=== PATIENT | female | born 1930 | race Caucasian/White ===

== ENCOUNTER 2017-06-07 02:10 | Inpatient (IN) | payer MEDICARE ==
[~2017-06-07] VITALS: Ht 144.8 cm; Wt 43.1 kg
[2017-06-07] MEDS ORDERED: VANCOMYCIN IV 1,000 MG in IV DEXTROSE 5% 250 ML IV ONE (02:30)
[2017-06-07] MEDS ORDERED: CEFTRIAXONE 1 G in IV DEXTROSE 5% 50 ML IV ONE (02:30)
[2017-06-07] MEDS ORDERED: GENTAMICIN SULFATE INJ 80 MG in IV DEXTROSE 5% 100 ML IV ONE (02:30)
[2017-06-07] MEDS ORDERED: IV NORMAL SALINE 1000 ML BAG IV ONE (02:30)
[2017-06-07 02:38] LABS: ABG PCO2 20.7 mmHg (35.0-45.0); ABG PH 7.532 (7.350-7.450); ABG PO2 45.8 mmHg (75.0-100.0); ABG SITE LEFT BRACHIAL; ABG TOTAL HEMOGLOBIN 10.8 G/dL (12.0-16.0); MetHb 0.1 % (0.0-1.5); VENT MODE ROOM AIR
[2017-06-07 03:00] LABS: BASOPHILS % (AUTO) 0.3 % (0.0-2.0); HEMATOCRIT 30.5 % (31.2-41.9); HEMOGLOBIN 10.2 g/dL (10.9-14.3); LYMPHOCYTES # (AUTO) 0.5 K/uL (20.0-40.0); LYMPHOCYTES % (AUTO) 4.3 % (20.5-51.5); MEAN CORPUSCULAR HGB CONC 33 g/dL (32.3-35.6); MEAN CORPUSCULAR VOLUME 83.9 fL (75.5-95.3); MONOCYTES # (AUTO) 0.5 K/uL (2.0-10.0); MONOCYTES % (AUTO) 4.5 % (0.0-11.0); NEUTROPHILS # (AUTO) 9.4 K/uL (1.8-8.9); NEUTROPHILS % (AUTO) 90.9 % (38.5-71.5); PLATELET COUNT (AUTO) 83 K/uL (179-408); RED BLOOD CELL COUNT(AUTO) 3.64 MIL/uL (3.63-4.92); WHITE BLOOD COUNT (AUTO) 10.4 K/uL (3.8-11.8)
[2017-06-07] MEDS ORDERED: CEFTRIAXONE 1 G VIAL ONE (03:12)
[2017-06-07] MEDS ORDERED: POLY17PO4 PO (03:22)
[2017-06-07] MEDS ORDERED: DULCOLAX SUPP (03:22)
[2017-06-07] MEDS ORDERED: MULT-213 PO (03:22)
[2017-06-07] MEDS ORDERED: CHOL10002 PO (03:22)
[2017-06-07] MEDS ORDERED: CALC500T3 PO (03:22)
[2017-06-07] MEDS ORDERED: RIFA550T PO (03:22)
[2017-06-07] MEDS ORDERED: MAGN400O6 PO (03:22)
[2017-06-07] MEDS ORDERED: ASCO500C18 PO (03:22)
[2017-06-07] MEDS ORDERED: ACET-2154 PO (03:22)
[2017-06-07] MEDS ORDERED: SUCR1ORA PO (03:22)
[2017-06-07] MEDS ORDERED: NADO80TA14 PO (03:22)
[2017-06-07] MEDS ORDERED: PANT40TA2 PO (03:22)
[2017-06-07] MEDS ORDERED: IPRA0.2S48 IH (03:22)
[2017-06-07] MEDS ORDERED: ALBU8HFA4 INH (03:22)
[2017-06-07] MEDS ORDERED: CRAN425C6 PO (03:22)
[2017-06-07] MEDS ORDERED: SPIR25TA4 PO (03:22)
[2017-06-07] MEDS ORDERED: LOPE-156 PO (03:22)
[2017-06-07] MEDS ORDERED: RANI150T12 PO (03:22)
[2017-06-07 03:27] LABS: CARBON DIOXIDE 22 mmol/L (21-32); CHLORIDE 107 mmol/L (98-107); GLUCOSE 110 mg/dL (74-106); POTASSIUM 4.1 mmol/L (3.5-5.1); UREA NITROGEN, BLOOD 12 mg/dL (7-18)
--- NOTE | 2017-06-07 03:29 | NUR ---
@[id number] , Patient called "Code Sepsis" per ER . Clerk Cortez angelo.
[2017-06-07 03:39] LABS: *BILIRUBIN,URIN NEGATIVE (NEGATIVE); *BLOOD, URINE 2+ (NEGATIVE); *CLARITY,URINE CLOUDY (CLEAR); *COLOR,URINE Brown (YELLOW); *KETONES,URINE TRACE (NEGATIVE); *PROTEIN,URINE 2+ (NEGATIVE); *UROBILINOGEN,URINE 0.2 E.U./dl (NORMAL); LEUKOCYTE ESTERASE ,URINE 2+ (NEGATIVE); NITRITE, URINE POSITIVE (NEGATIVE); PH,URINE 5.5 (5.0-8.0); UGLUCOSE NEGATIVE (NEGATIVE)
[2017-06-07 03:42] LABS: ALANINE AMINOTRANSFERASE 15 U/L (14-59); ALKALINE PHOSPHATASE 148 U/L (50-136); ASPARTATE AMINOTRANSFERASE 26 U/L (15-37); BILIRUBIN,DIRECT 0.2 mg/dL (0.0-0.2); BILIRUBIN,TOTAL 0.4 mg/dL (0.2-1.0); TOTAL PROTEIN, SERUM 6.6 g/dL (6.4-8.2)
[2017-06-07] MEDS ORDERED: VANCOMYCIN IV 200 ML ONE (03:52)
[2017-06-07 03:54] LABS: BACTERIA,URINE MANY /HPF (NONE SEEN); RBC,URINE 50-80 /HPF (0-3); SQUAMOUS EPITHELIAL CELL,UR FEW /HPF (NONE SEEN); WBC,URINE TNTC /HPF (0-3)
--- NOTE | 2017-06-07 04:11 | NUR ---
Patient awake, in bed, no acute distress noted. All patient needs attended and met.
[2017-06-07 04:48] LABS: BAND % (MANUAL) 4 % (0-10); LYMPHOCYTES % (MANUAL) 8 % (20-40); MONOCYTES % (MANUAL) 1 % (2-10); NEUTROPHILS % (MANUAL) 87 % (42-75)
[2017-06-07] MEDS ORDERED: GENTAMICIN SULFATE 80 MG/2 ML VIAL ONE (05:31)
--- NOTE | 2017-06-07 06:03 | NUR ---
Call placed to [facility] for panel call. Call back pending.
--- NOTE | 2017-06-07 06:41 | NUR ---
BENITA MATTA on phone with Dr Batista
--- NOTE | 2017-06-07 06:53 | NUR ---
Attempted to give report on patient. Per inpatient unit, there is no nurse assigned to this patients room at this time. Unable to give report at this time.
[2017-06-07] MEDS ORDERED: SUCRALFATE 1 G/10 ML LIQUID UDC PO PRN (07:15)
[2017-06-07] MEDS ORDERED: MAGNESIUM HYDROXIDE 30 ML LIQUID UDC PO PRN ×2 (07:15)
[2017-06-07] MEDS ORDERED: CALCIUM CARBONATE 500 MG TABLET PO PRN (07:15)
[2017-06-07] MEDS ORDERED: ACETAMINOPHEN 325 MG TABLET PO PRN ×2 (07:15)
[2017-06-07] MEDS ORDERED: Z GUARD REMEDY PASTE 57 GM TUBE TOP PRN (07:15)
[2017-06-07] MEDS ORDERED: MIRALAX 17 GM POWD.PACK PO PRN (07:15)
[2017-06-07] MEDS ORDERED: LOPERAMIDE HCL 2 MG CAPSULE PO PRN (07:15)
[2017-06-07] MEDS ORDERED: LEVOFLOXACIN 500 MG/D5W 500 MG in PREMIXED 1 EACH IV SCH (07:15)
[2017-06-07] MEDS ORDERED: IPRATROPIUM BROMIDE 0.5 MG/2.5 ML NEBU NEB PRN (07:15)
--- NOTE | 2017-06-07 08:11 | NUR ---
report was given to journalism teacher . pt was transfered to room #203.
[2017-06-07] MEDS ORDERED: CALCIUM CARBONATE 500 MG TAB.CHEW PO PRN (08:15)
[2017-06-07] MEDS: PANTOPRAZOLE SODIUM 40 MG TABLET.DR PO SCH (08:34)
[2017-06-07] MEDS ORDERED: PANTOPRAZOLE SODIUM 40 MG TABLET.DR PO ONE (08:49)
[2017-06-07] MEDS ORDERED: NADOLOL PO SCH (09:00)
[2017-06-07] MEDS ORDERED: Medication Not On Formulary EA (Cranberry Extract (Cranberry) 425 MG) PO SCH (09:00)
[2017-06-07] MEDS ORDERED: Medication Not On Formulary EA (Multivitamins W-Minerals (Multivitamin With Minerals) 1 PO SCH (09:00)
[2017-06-07] MEDS ORDERED: Medication Not On Formulary EA (Ascorbic Acid (Vitamin C) 500 MG) PO SCH (09:00)
[2017-06-07] MEDS ORDERED: LEVOFLOXACIN 750MG/D5W 750 MG in PREMIXED 1 EACH IV SCH (09:00)
[2017-06-07] MEDS ORDERED: FUROSEMIDE 40 MG/4 ML VIAL IV SCH (09:00)
--- NOTE | 2017-06-07 09:00 | NUR ---
RECEIVED PATIENT FROM ED 87 YRS OLD FEMALE WITH DX OF PNEUMONIA PLACED INTO BED FIXED AND MADE COMFORTABLE PATIENT IS ALERT AND AWARE A LITTLE FORGETFUL BUT ABLE TO ASSIST WITH ADMISSION PROCESS.SHE IS ON O2 AT 2L/M BY NASAL CANULLA NOTED OCCASSIONAL COUGH WITH MILD SECRETIONS PATIENT HAS RECEIVED ANTIBIOTICS FROM ED WITH NO ADVERSE OR ALLERGIC REACTIONS AT THIS TIME.HAS 2 HEP LOCKS ONE ON LT/RT ARM FLUSHED PER PROTOCOL.PLACED ON TELEMETRY AND ITS SINUS WITH NO ECTOPY AT THIS TIME.[place] CATH WITH YAZMIN COLORED URINE MADE COMFORTABLE DR ALVINO CUADRA AWARE OF THE PATIENTS ARRIVAL WILL SEE PATIENT.
[2017-06-07 09:15] VITALS: BP 130/63
[2017-06-07] MEDS ORDERED: VANCOMYCIN IV 1 G in PREMIXED 0 EACH IV SCH (09:30)
[2017-06-07] MEDS: IV D5/ 0.9% NACL 1,000 ML IV PRN (10:40)
[2017-06-07] MEDS: RIFAXIMIN 550 MG TABLET PO SCH ×2 (10:44→16:32)
[2017-06-07] MEDS: SPIRONOLACTONE 25 MG TABLET PO SCH ×2 (10:44→16:32)
[2017-06-07] MEDS: CHOLECALCIFEROL 1,000 UNIT TABLET PO SCH (10:44)
[2017-06-07] MEDS: ASCORBIC ACID 500 MG TABLET PO SCH (10:44)
[2017-06-07] MEDS: MULTIVIT, IRON, MIN NO. 8, FA TABLET PO SCH (10:45)
[2017-06-07] MEDS: AZTREONAM 1 G in IV NORMAL SALINE 50 ML IV SCH ×2 (11:29→18:03)
[2017-06-07 11:40] VITALS: BP 101/58
[2017-06-07] MEDS: FAMOTIDINE 20 MG TABLET PO SCH ×2 (12:36→21:04)
[2017-06-07] MEDS: NADOLOL 40 MG TABLET PO SCH (13:46)
--- NOTE | 2017-06-07 15:21 | NUR ---
2 D ECHO COMPLETED ORDERED WITH 60% EF.REMAIN ON ATB ORDERED AND IVF ORDERED WITH NO ADVERSE OR ALLERGIC REACTIONS AT THIS TIME WILL CONTINUE TO OBSERVE AND MONITOR PATIENT.
[2017-06-07 15:38] VITALS: BP 108/54
--- NOTE | 2017-06-07 15:51 | NUR ---
PATIENT HAS 287 DOLLARS IN [place] DIFFERENT DENOMINATIONS KEYS 2 RINGS WEARING THEM TAPED TO HER HAND PATIENT REFUSED TO HAVE THESE ITEMS PLACED IN THE SAFE.
--- NOTE | 2017-06-07 15:54 | NUR ---
CLINICAL PHARMACY NOTE:VANCOMYCIN DOSING S to start vancomycin dosing 0n 87 y/o female 4' 9'', 95 lbs for pna. patient received vanco 1gm IVPB x1 on 06/07 at 0330 O Temp 98.6 BUN 12 Scr 1 WBC 10.4 P Will start vanco 500mg IVPB q29 hr for predicted vanco trough level of 16 mcg/ml at steady state. 1st dose is due on 06/08 at 0900. will monitro srcr & adjust the dose if needed. Will order trough level prior to 4th dose (not ordered yet). Will continue to monitor
--- NOTE | 2017-06-07 17:54 | NUR ---
RESTING IN BED REFUSED TO HAVE HER DVT PUMPS ORDERED STATED THAT IT MAKES HER UNCOMFORTABLE SO REMOVED AT THIS TIME.
[2017-06-07] MEDS: ONDANSETRON 4 MG/2 ML VIAL IV PRN ×2 (18:33→23:51)
--- NOTE | 2017-06-07 19:38 | NUR ---
PATIENT RESTING COMFORTABLY IN BED. RECEIVED SHIFT REPORT FROM DAY SHIFT NURSE. O2 2L NC ON. FAMILY AT BEDSIDE. STABLE CONDITION, NO S/S OF DISTRESS, VSS. WILL CONTINUE TO MONITOR PATIENT. BED IN LOCKED/LOW POSITION, BED ALARM ON, SIDE RAILS UP X2, CALL LIGHT WITHIN REACH. SAFETY/COMFORT WILL BE IMPLEMENTED THROUGHOUT SHIFT.
[2017-06-07] MEDS ORDERED: ALBUTEROL SULFATE 2.5 MG/3 ML NEBU NEB PRN ×2 (19:45→20:05)
[2017-06-07 20:00] VITALS: BP 105/40
[2017-06-07] MEDS: LACTULOSE 20 G/30 ML LIQUID UDC PO SCH (21:00)
--- NOTE | 2017-06-07 21:00 | NUR ---
NON-ADMINISTRATION: CEPHULAC 20 G. - PATIENT REFUSED PATIENT VERBALIZED THAT SHE IS NOT CONSTIPATION AND SHE HAS BOWEL MOVEMENTS REGULARLY.
[2017-06-07] MEDS: Z GUARD REMEDY PASTE 57 GM TUBE TOP SCH (21:04)
[2017-06-07] MEDS: methylPREDNISolone SOD SUCC 125 MG/2 ML VIAL IV SCH (22:09)
[2017-06-08 00:24] VITALS: BP 124/51
[2017-06-08] MEDS: AZTREONAM 1 G in IV NORMAL SALINE 50 ML IV SCH ×3 (02:24→18:05)
[2017-06-08] MEDS: IV D5/ 0.9% NACL 1,000 ML IV PRN ×2 (02:25→17:53)
[2017-06-08 04:00] VITALS: BP 122/60
[2017-06-08] MEDS: methylPREDNISolone SOD SUCC 125 MG/2 ML VIAL IV SCH ×5 (05:25→22:10)
--- NOTE | 2017-06-08 05:40 | NUR ---
NON-ADMINISTRATION: SOLUMEDROL 40 MG IV - PATIENT REFUSED MEDICATION PATIENT VERBALIZED, "I DONT WANT IT, BECAUSE IT MADE ME NAUSEAS ALL NIGHT". EDUCATED PATIENT THAT NAUSEA IS ONE OF THE SIDE EFFECTS OF SOLUMEDROL. PATIENT CONTINUED TO REFUSE.
[2017-06-08] MEDS: PANTOPRAZOLE SODIUM 40 MG TABLET.DR PO SCH (06:09)
--- NOTE | 2017-06-08 06:23 | NUR ---
PATIENT SLEPT THROUGH MAJORITY OF THE NIGHT. STABLE CONDITION, NO S/S OF DISTRESS, VITAL SIGNS STABLE. [place] CATHETER IN PLACE AND INTACT. COMPLAINED OF BEING NAUSEATED, ZOFRAN ADMINISTERED AND NAUSEA DIMINISHED, NO EMESIS PRESENT. PATIENT CHANGED, CLEANED. BED IN LOCKED/LOW POSITION, SIDE RAILS UP X2,BED ALARM ON, CALL LIGHT WITHIN REACH.
[2017-06-08 06:41] LABS: CARBON DIOXIDE 22 mmol/L (21-32); CHLORIDE 109 mmol/L (98-107); CREATININE 0.9 mg/dL (0.6-1.3); GLUCOSE 148 mg/dL (74-106); MAGNESIUM 1.6 mg/dL (1.8-2.4); PHOSPHOROUS 2.7 mg/dL (2.5-4.9); UREA NITROGEN, BLOOD 11 mg/dL (7-18)
[2017-06-08 07:12] LABS: BASOPHILS % (AUTO) 0.2 % (0.0-2.0); EOSINOPHILS % (AUTO) 0.1 % (0.0-7.0); HEMATOCRIT 29.2 % (31.2-41.9); HEMOGLOBIN 9.7 g/dL (10.9-14.3); LYMPHOCYTES # (AUTO) 0.3 K/uL (20.0-40.0); LYMPHOCYTES % (AUTO) 8.1 % (20.5-51.5); MEAN CORPUSCULAR HEMOGLOBIN 27.9 uug (24.7-32.8); MEAN CORPUSCULAR HGB CONC 33 g/dL (32.3-35.6); MEAN CORPUSCULAR VOLUME 83.8 fL (75.5-95.3); MONOCYTES # (AUTO) 0.1 K/uL (2.0-10.0); MONOCYTES % (AUTO) 2.2 % (0.0-11.0); NEUTROPHILS # (AUTO) 3.2 K/uL (1.8-8.9); NEUTROPHILS % (AUTO) 89.4 % (38.5-71.5); RED BLOOD CELL COUNT(AUTO) 3.48 MIL/uL (3.63-4.92); WHITE BLOOD COUNT (AUTO) 3.6 K/uL (3.8-11.8)
[2017-06-08 07:16] LABS: PLATELET COUNT (AUTO) 57 K/uL (179-408)
--- NOTE | 2017-06-08 07:48 | NUR ---
PATIENT IN BED AWAKE ALERT AND ORIENTED DENIES PAIN OR DISCOMFORTS AT THIS TIME.REMAIN ON IVF ORDERED WITH NO NO S/S OF INFILTERATION ON SITE.ON O2 WITH NO SHORTNESS OF BREATH AT THIS TIME.CALL LIGHTS ARE WITHIN EASY REACH MADE COMFORTABLE AND WILL CONTINUE TO OBSERVE.
[2017-06-08] MEDS ORDERED: IPRATROPIUM BROMIDE 0.5 MG/2.5 ML NEBU NEB PRN ×3 (08:00→15:00)
[2017-06-08] MEDS: ALBUTEROL SULFATE 2.5 MG/3 ML NEBU NEB SCH ×4 (08:26→19:03)
[2017-06-08] MEDS: FAMOTIDINE 20 MG TABLET PO SCH (09:12)
[2017-06-08] MEDS: MULTIVIT, IRON, MIN NO. 8, FA TABLET PO SCH (09:12)
[2017-06-08] MEDS: ASCORBIC ACID 500 MG TABLET PO SCH (09:12)
[2017-06-08] MEDS: CHOLECALCIFEROL 1,000 UNIT TABLET PO SCH (09:12)
[2017-06-08] MEDS: RIFAXIMIN 550 MG TABLET PO SCH ×2 (09:12→16:18)
[2017-06-08] MEDS: LACTULOSE 20 G/30 ML LIQUID UDC PO SCH ×2 (09:13→20:45)
[2017-06-08] MEDS: SPIRONOLACTONE 25 MG TABLET PO SCH ×2 (09:13→16:18)
[2017-06-08] MEDS: NADOLOL 40 MG TABLET PO SCH (09:14)
[2017-06-08] MEDS: Z GUARD REMEDY PASTE 57 GM TUBE TOP SCH ×2 (09:15→20:45)
[2017-06-08] MEDS: VANCOMYCIN IV 500 MG in IV DEXTROSE 5% 100 ML IV SCH (09:44)
[2017-06-08] MEDS ORDERED: MAGNESIUM SULFATE/D5W 100 ML IV SCH (10:30)
--- NOTE | 2017-06-08 10:38 | NUR ---
PATIENT SEEN AND EXAMINED BY CHRI[employer]INE [employer] ASSEMBLER MAG LEVEL IS 1.6 WITH NEW ORDERS AND NOTED.
--- NOTE | 2017-06-08 10:45 | NUR ---
RECEIVED LAB RESULT FROM THE LAB WITH POSITIVE BLOOD CULTURES IN CL[facility]ERS AND POSITIVE GRAM STAIN RELAYED TO [facility] WITH NO NEW ORDERS AT THIS TIME.
--- NOTE | 2017-06-08 11:09 | NUR ---
DR LOWE FLOOR NURSE HERE AND SEEN PATIENT WITH ORDER TO D/C TELEMETRY TODAY AND NOTED
[2017-06-08 11:19] LABS: LYMPHOCYTES % (MANUAL) 11 % (20-40); NEUTROPHILS % (MANUAL) 89 % (42-75)
[2017-06-08 11:40] VITALS: BP 107/48
--- NOTE | 2017-06-08 13:00 | NUR ---
PATIENT HAS CALLED THE POLICE STATED THAT SHE WAS HELD AGAINST HER WISHES AT [facility] STATED THAT SHE WANTED TO LEAVE THIS FACILITY SO MANY TIMES STATED THAT SHE EVEN CALLED THE AMBULANCE HERSELF BUT THE FACILITY CONVINCED THE AMBULANCE NOT TO TAKE HER SO THE POLICE CAME SPOKE WITH THE LAST SCOURER AND THE PACKING MACHINE TENDER AND THEN LEFT.PATIENT STATED THAT SHE IS CALLING THE ULTRASOUND MANAGER TO FILE A CRIMINAL CASE AGAINST [facility].
--- NOTE | 2017-06-08 13:47 | NUR ---
CLINICAL PHARMACY NOTE:VANCOMYCIN DOSING S to continue vancomycin dosing 0n 87 y/o female 4' 9'', 95 lbs for pna. patient received vanco 1gm IVPB x1 on 06/07 at 0330 O Temp 98.4 BUN 11 Scr 0.9 WBC 3.6 P Will continue vanco 500mg IVPB q29 hr for predicted vanco trough level of 16 mcg/ml at steady state. Second dose is due on 06/09 at 1400. will monitro srcr & adjust the dose if needed. Will order trough level prior to 4th dose (not ordered yet). Will continue to monitor
[2017-06-08] MEDS ORDERED: ALBUTEROL SULFATE 2.5 MG/3 ML NEBU NEB PRN (15:00)
[2017-06-08] MEDS ORDERED: MAG HYDROX/AL HYDROX/SIMETH 30 ML LIQUID UDC PO PRN (15:00)
[2017-06-08 15:51] VITALS: BP 104/48
--- NOTE | 2017-06-08 16:00 | NUR ---
PATIENT STATED HAS NAUSEA AND WHEN I TRIED TO GIVE HER ZOFRAN ORDERED STATED NOT RIGHT NOW JUST WAIT FOR LATER STATED THAT NAUSEA IS BETTER.
--- NOTE | 2017-06-08 18:49 | NUR ---
DR LOZANO HERE TO SEE PATIENT WITH NEW ORDERS AND NOTED. Addendum: 06/08/17 at 1920 by JULIANA XIONG RN ENDORSED TO NOC SHIFT TO OBTAIN THE SPUTUM ORDERED.
[2017-06-08] MEDS: IPRATROPIUM BROMIDE 0.5 MG/2.5 ML NEBU NEB SCH (19:03)
--- NOTE | 2017-06-08 19:40 | NUR ---
RECEIVED SHIFT REPORT FROM DAY SHIFT NURSE. PATIENT RESTING COMFORTABLY IN BED RECEIVING BREATHING TREATMENT. [place] IN PLACE. VITAL SIGNS STABLE. NO S/S OF DISTRESS. BED IN LOCKED/LOW POSITION WITH SIDE RAILS UP X2, BED ALARM ON, CALL LIGHT WITHIN REACH. SAFETY/COMFORT WILL BE PROVIDED.
[2017-06-08 20:47] VITALS: BP 118/47
[2017-06-08] MEDS ORDERED: MEROPENEM 500 MG VIAL IV ONE (21:46)
[2017-06-08] MEDS: MEROPENEM 500 MG in IV NORMAL SALINE 50 ML IV SCH (21:48)
[2017-06-08] MEDS: ZOLPIDEM 5 MG TABLET PO PRN (21:55)
[2017-06-08 23:40] VITALS: BP 100/42
[2017-06-09 04:46] VITALS: BP 118/52
[2017-06-09] MEDS: methylPREDNISolone SOD SUCC 125 MG/2 ML VIAL IV SCH ×2 (05:56→13:11)
[2017-06-09] MEDS: PANTOPRAZOLE SODIUM 40 MG TABLET.DR PO SCH (05:56)
[2017-06-09] MEDS: IV D5/ 0.9% NACL 1,000 ML IV PRN ×2 (05:56→22:40)
--- NOTE | 2017-06-09 06:24 | NUR ---
PATIENT SLEPT THROUGH MAJORITY OF THE NIGHT. NO S/S OF DISTRESS, STABLE CONDITION, VITALSIGNS STABLE. BED IN LOCKED/LOW POSITION, SIDE RAILS UP X2, BED ALARM ON, CALL LIGHT WITHIN REACH. COMFORT/SAFETY PROVIDED.
[2017-06-09] MEDS: IPRATROPIUM BROMIDE 0.5 MG/2.5 ML NEBU NEB SCH ×4 (07:14→18:56)
[2017-06-09] MEDS: ALBUTEROL SULFATE 2.5 MG/3 ML NEBU NEB SCH ×4 (07:14→18:57)
[2017-06-09] MEDS: LACTULOSE 20 G/30 ML LIQUID UDC PO SCH ×2 (08:32→20:31)
[2017-06-09] MEDS: MEROPENEM 500 MG in IV NORMAL SALINE 50 ML IV SCH ×2 (08:32→20:35)
[2017-06-09] MEDS: ASCORBIC ACID 500 MG TABLET PO SCH (08:32)
[2017-06-09] MEDS: MULTIVIT, IRON, MIN NO. 8, FA TABLET PO SCH (08:33)
[2017-06-09] MEDS: SPIRONOLACTONE 25 MG TABLET PO SCH ×2 (08:33→16:27)
[2017-06-09] MEDS: CHOLECALCIFEROL 1,000 UNIT TABLET PO SCH (08:33)
[2017-06-09] MEDS: RIFAXIMIN 550 MG TABLET PO SCH ×2 (08:33→16:27)
[2017-06-09] MEDS: Z GUARD REMEDY PASTE 57 GM TUBE TOP SCH ×2 (08:37→20:32)
[2017-06-09] MEDS: NADOLOL 40 MG TABLET PO SCH (08:37)
--- NOTE | 2017-06-09 09:30 | NUR ---
PATIENT SEEN BY THE PHYSICAL THERAPY ABLE TO WALK FEW STEP AND TOLERATED FAIR AND THEN BACK TO BED.
[2017-06-09 09:39] LABS: ALANINE AMINOTRANSFERASE 17 U/L (14-59); ALKALINE PHOSPHATASE 148 U/L (50-136); ASPARTATE AMINOTRANSFERASE 18 U/L (15-37); BILIRUBIN,TOTAL 0.3 mg/dL (0.2-1.0); CARBON DIOXIDE 20 mmol/L (21-32); CHLORIDE 111 mmol/L (98-107); CHOLESTEROL 93 mg/dL (<200); CREATININE 0.8 mg/dL (0.6-1.3); GLUCOSE 111 mg/dL (74-106); HDL CHOLESTEROL 42 mg/dL (40-60); MAGNESIUM 1.9 mg/dL (1.8-2.4); PHOSPHOROUS 2.3 mg/dL (2.5-4.9); POTASSIUM 3.9 mmol/L (3.5-5.1); THYROID STIMULATING HORMONE 1.528 mIU/mL (0.358-3.740); TOTAL PROTEIN, SERUM 6.8 g/dL (6.4-8.2); TRIGLYCERIDES 34 MG/DL (30-150); UREA NITROGEN, BLOOD 14 mg/dL (7-18)
--- NOTE | 2017-06-09 11:12 | NUR ---
IV SITE INFILTERATED REINSERTED TO HER RIGHT WRIST AFTER SO MANY ATTEMPTS CONTINUED ON IV ANTIBIOTIC ORDERED WITH NO ADVERSE OR ALLERGIC REACTIONS AT THIS TIME.
[2017-06-09 11:25] LABS: LYMPHOCYTES # (AUTO) 0.4 K/uL (20.0-40.0); MEAN CORPUSCULAR VOLUME 85.8 fL (75.5-95.3); MONOCYTES # (AUTO) 0.2 K/uL (2.0-10.0)
[2017-06-09 11:33] VITALS: BP 137/48
[2017-06-09 11:40] LABS: BASOPHILS % (AUTO) 0.1 % (0.0-2.0); LYMPHOCYTES % (AUTO) 4.5 % (20.5-51.5); MEAN CORPUSCULAR HEMOGLOBIN 27.6 uug (24.7-32.8); MEAN CORPUSCULAR HGB CONC 32 g/dL (32.3-35.6); NEUTROPHILS # (AUTO) 7.5 K/uL (1.8-8.9); NEUTROPHILS % (AUTO) 93.4 % (38.5-71.5); RED BLOOD CELL COUNT(AUTO) 3.61 MIL/uL (3.63-4.92)
[2017-06-09 11:43] LABS: PLATELET COUNT (AUTO) 78 K/uL (179-408); WHITE BLOOD COUNT (AUTO) 8.1 K/uL (3.8-11.8)
[2017-06-09] MEDS ORDERED: NEUTRA PHOS PACKET PO ONE (11:45)
--- NOTE | 2017-06-09 12:43 | NUR ---
PHOS LEVEL IS 2.3 SEEN BY CHRISTINE GRAPHIC DESIGN ASSISTANT WITH NEW ORDERS AND NOTED.
--- NOTE | 2017-06-09 12:51 | NUR ---
CLINICAL PHARMACY NOTE:VANCOMYCIN DOSING S to continue vancomycin dosing 0n 87 y/o female 4' 9'', 95 lbs for pna. patient received vanco 1gm IVPB x1 on 06/07 at 0330 O Temp 97.5 BUN 14 Scr 0.8 WBC 8.1 P Will continue vanco 500mg IVPB q29 hr for predicted vanco trough level of 16 mcg/ml at steady state. Patient is receiving the second dose today at 1400. will monitro srcr & adjust the dose if needed. Will order trough level prior to 4th dose (not ordered yet). Will continue to monitor
[2017-06-09 12:52] LABS: BAND % (MANUAL) 1 % (0-10); LYMPHOCYTES % (MANUAL) 5 % (20-40); MONOCYTES % (MANUAL) 1 % (2-10); NEUTROPHILS % (MANUAL) 93 % (42-75)
[2017-06-09] MEDS: VANCOMYCIN IV 500 MG in IV DEXTROSE 5% 100 ML IV SCH (13:11)
[2017-06-09 15:40] VITALS: BP 115/59
--- NOTE | 2017-06-09 17:53 | NUR ---
PATIENT SEEN AND EXAMINED BY DR LOZANO WITH NEW ORDERS AND NOTED PATIENT IS FEEDING HERSELF AT THIS STATED THAT SHE COULD TASTE THE FOOD BETTER TODAY.REMAIN ON IV ANTIBIOTICS ORDERED WITH NO ADVERSE OR ALLERGIC REACTIONS AT THIS TIME.
--- NOTE | 2017-06-09 19:40 | NUR ---
RECEIVED SHIFT REPORT FROM DAY SHIFT NURSE. PATIENT IS A/OX4, STABLE CONDITION, NO S/S OF DISTRESS, VITAL SIGNS STABLE. BED IN LOCKED/LOW POSITION, SIDE RAILS UP X2, BED ALARM ON, CALL LIGHT WITHIN REACH. [place] IN PLACE, FLOWING. SAFETY/COMFORT WILL BE PROVIDED.
[2017-06-09 20:00] VITALS: BP 117/42
[2017-06-09] MEDS: methylPREDNISolone SOD SUCC 40 MG/ML VIAL IV SCH (20:31)
[2017-06-09] MEDS ORDERED: methylPREDNISolone SOD SUCC 125 MG/2 ML VIAL IV SCH (21:00)
[2017-06-09] MEDS: BENZOCAINE/MENTH/CETYLPYRD LOZENGE MM PRN (22:16)
[2017-06-09] MEDS: ZOLPIDEM 5 MG TABLET PO PRN (23:01)
[2017-06-10 05:41] VITALS: BP 123/52
--- NOTE | 2017-06-10 06:16 | NUR ---
PATIENT SLEPT THROUGH MAJORITY OF THE NIGHT. VERBALIZING THAT PATIENT HAD A GREAT SLEEP. RESTING COMFORTABLY IN BED. A/OX4. STABLE CONDITION, NO S/S OF DISTRESS, VITAL SIGNS STABLE. PATIENT CHANGED, Z-GUARD APPLIED, REPOSITIONED Q2H THROUGH SHIFT. NO COMPLAINTS OF PAIN VERBALIZED BY PATIENT. PATIENT IS COOPERATIVE. BED IN LOCKED/ LOW POSITION, SIDE RAILS UP X2, BED ALARM, CALL LIGHT WITHIN REACH.
[2017-06-10] MEDS: PANTOPRAZOLE SODIUM 40 MG TABLET.DR PO SCH (07:03)
[2017-06-10] MEDS: IPRATROPIUM BROMIDE 0.5 MG/2.5 ML NEBU NEB SCH ×4 (07:10→19:18)
[2017-06-10] MEDS: ALBUTEROL SULFATE 2.5 MG/3 ML NEBU NEB SCH ×4 (07:10→19:18)
--- NOTE | 2017-06-10 08:00 | NUR ---
RECEIVED PATIENT IN BED AWAKE. A AND O X 4. NO ACUTE DISTRESS NOTED. WITH O2 VIA NC @ 4LPM WELL TOLERATED O2 SAT 100%. ABLE TO MAKE NEEDS KNOWN. WITH IV SITE ON THE RIGHT WRIST #20, INTACT AND PATENT. IVF OF D5NS 1L @75 CC/HR. COMPLAINED OF BACK PAIN, PRO-VIDED COMFORT MEASURES. ALL NEEDS ATTENDED AND ANTICIPATED. WILL CONTINUE TO MONITOR CLOSELY
[2017-06-10] MEDS: methylPREDNISolone SOD SUCC 40 MG/ML VIAL IV SCH ×2 (08:22→20:17)
[2017-06-10 08:30] LABS: CARBON DIOXIDE 19 mmol/L (21-32); CHLORIDE 112 mmol/L (98-107); CREATININE 0.8 mg/dL (0.6-1.3); GLUCOSE 106 mg/dL (74-106); MAGNESIUM 1.7 mg/dL (1.8-2.4); UREA NITROGEN, BLOOD 14 mg/dL (7-18)
[2017-06-10] MEDS: RIFAXIMIN 550 MG TABLET PO SCH ×2 (08:30→16:31)
[2017-06-10] MEDS: NADOLOL 40 MG TABLET PO SCH (08:30)
[2017-06-10] MEDS: CHOLECALCIFEROL 1,000 UNIT TABLET PO SCH (08:30)
[2017-06-10] MEDS: SPIRONOLACTONE 25 MG TABLET PO SCH ×2 (08:31→16:31)
[2017-06-10] MEDS: LACTULOSE 20 G/30 ML LIQUID UDC PO SCH ×2 (08:31→20:16)
[2017-06-10] MEDS: MULTIVIT, IRON, MIN NO. 8, FA TABLET PO SCH (08:31)
[2017-06-10] MEDS: ASCORBIC ACID 500 MG TABLET PO SCH (08:31)
[2017-06-10] MEDS: HYDROCODONE/APAP 5-325MG TABLET PO PRN (08:31)
[2017-06-10 08:32] LABS: BASOPHILS % (AUTO) 0.1 % (0.0-2.0); HEMOGLOBIN 9.8 g/dL (10.9-14.3); LYMPHOCYTES # (AUTO) 0.5 K/uL (20.0-40.0); LYMPHOCYTES % (AUTO) 5.1 % (20.5-51.5); MEAN CORPUSCULAR HEMOGLOBIN 27.8 uug (24.7-32.8); MEAN CORPUSCULAR HGB CONC 33 g/dL (32.3-35.6); MEAN CORPUSCULAR VOLUME 84.8 fL (75.5-95.3); MONOCYTES # (AUTO) 0.4 K/uL (2.0-10.0); MONOCYTES % (AUTO) 4.4 % (0.0-11.0); NEUTROPHILS # (AUTO) 8.9 K/uL (1.8-8.9); NEUTROPHILS % (AUTO) 90.4 % (38.5-71.5); PLATELET COUNT (AUTO) 83 K/uL (179-408); RED BLOOD CELL COUNT(AUTO) 3.54 MIL/uL (3.63-4.92); WHITE BLOOD COUNT (AUTO) 9.9 K/uL (3.8-11.8)
[2017-06-10] MEDS: Z GUARD REMEDY PASTE 57 GM TUBE TOP SCH ×2 (08:37→20:16)
[2017-06-10] MEDS: MEROPENEM 500 MG in IV NORMAL SALINE 50 ML IV SCH ×2 (09:28→20:40)
--- NOTE | 2017-06-10 09:30 | NUR ---
PATIENT'S IV SITE ON THE RIGHT WRIST DISLODGED. REINSERTED IV SITE ON THE RIGHT HAND #20 WITH GOOD VENOUS RETURN. ASEPTIC TECHNIQUE OBSERVED WHILE DOING PROCEDURE. NEW IV SITE INTACT AND PATENT, SECURED WITH KERLIX.
[2017-06-10 11:02] VITALS: BP 135/57
[2017-06-10 11:30] VITALS: BP 137/80
--- NOTE | 2017-06-10 12:14 | NUR ---
CLINICAL PHARMACY NOTE:VANCOMYCIN DOSING S to continue vancomycin dosing 0n 87 y/o female 4' 9'', 95 lbs for pna. patient received vanco 1gm IVPB x1 on 06/07 at 0330 O Temp 98 BUN 14 Scr 0.8 WBC 9.9 P Will continue vanco 500mg IVPB q29 hr for predicted vanco trough level of 16 mcg/ml at steady state. Patient is receiving the third dose today at 1900. will monitro srcr & adjust the dose if needed. Will order trough level prior to 4th dose (not ordered yet). Will continue to monitor
[2017-06-10] MEDS ORDERED: NEUTRA PHOS PACKET PO ONE (12:45)
[2017-06-10] MEDS ORDERED: MAGNESIUM OXIDE 400 MG TABLET PO ONE (12:45)
[2017-06-10 16:00] VITALS: BP 136/59
[2017-06-10] MEDS: IV D5/ 0.9% NACL 1,000 ML IV PRN (16:14)
--- NOTE | 2017-06-10 19:45 | NUR ---
RECEIVED SHIFT REPORT FROM DAY SHIFT NURSE. SLEEPING COMFORTABLY IN BED AT THIS TIME, NO S/S OF DISTRESS, VITAL SIGNS STABLE. IVF RUNNING, [place] IN PLACE AND FLOWING. BED IN LOCKED/LOW POSITION, SIDE RAILS UP X2, BED ALARM ON, CALL LIGHT WITHIN REACH. SAFETY/COMFORT WILL BE IMPLEMENTED THROUGHOUT SHIFT.
[2017-06-10 20:00] VITALS: BP 135/64
[2017-06-10] MEDS: BENZOCAINE/MENTH/CETYLPYRD LOZENGE MM PRN (20:07)
[2017-06-10] MEDS: LACTOBACILLUS RHAMNOSUS GG 1 EACH CAPSULE PO SCH (20:16)
[2017-06-10] MEDS: ONDANSETRON 4 MG/2 ML VIAL IV PRN (21:47)
--- NOTE | 2017-06-11 00:30 | NUR ---
[place] CATHETER REQUIRED IRRIGATION. ABDOMINAL DISTENTION NOTED. IVF WAS HELD. BLADDER SCAN SHOWED 347 CC. DIFFICULT TO IRRIGATE [place] CATHETER. NEW [place] CATHETER INSERTED. WILL MONITOR OUTPUT.
[2017-06-11] MEDS: BENZOCAINE/MENTH/CETYLPYRD LOZENGE MM PRN ×2 (00:54→17:17)
--- NOTE | 2017-06-11 02:10 | NUR ---
URINE OUTPUT VERY MINIMAL: 15 CC. BLADDER SCAN DONE: 294 CC DETECTED. MD CONTACTED AND ORDERED TO CONTINUE MONITORING PATIENT. ABDOMEN CONTINUES TO BE DISTENDED, PATIENT COMPLAINING OF DIFFICULTY BREATHING. O2 SATURATION AT 95% ON 4L NC. HEAD OF BED ELEVATED. NO S/S OF RESPIRATORY DISTRESS. WILL CONTINUALLY MONITOR PATIENT.
[2017-06-11 06:16] VITALS: BP 142/65
--- NOTE | 2017-06-11 06:42 | NUR ---
PATIENT A/OX4, RESTING COMFORTABLY IN BED AT THIS MOMENT AFTER BEING CHANGED, 3 TOTAL BOWEL MOVEMENTS DURING SHIFT. PATIENT SATURATING WNL AT THIS TIME. PATIENT HAS PERIODS OF ANXIOUSNESS, PANIC ATTACKS, VERBALIZING DIFFICULTY BREATHING. STABLE CONDITION, NO S/S OF RESPIRATORY DISTRESS. ABDOMINAL DISTENTION HAS SLIGHTLY DECREASED BUT STILL DISTENDED. WILL INFORM NEXT SHIFT ABOUT OCCURRENCE. BED IN LOCKED/LOW POSITION, SIDE RAILS UP X2, BED ALARM ON, CALL LIGHT WITHIN REACH.
[2017-06-11] MEDS: PANTOPRAZOLE SODIUM 40 MG TABLET.DR PO SCH (06:58)
[2017-06-11] MEDS: IPRATROPIUM BROMIDE 0.5 MG/2.5 ML NEBU NEB SCH ×4 (07:05→19:25)
[2017-06-11] MEDS: ALBUTEROL SULFATE 2.5 MG/3 ML NEBU NEB SCH ×4 (07:32→19:25)
[2017-06-11 07:48] LABS: BASOPHILS % (AUTO) 0.1 % (0.0-2.0); LYMPHOCYTES # (AUTO) 0.4 K/uL (20.0-40.0); MONOCYTES # (AUTO) 0.3 K/uL (2.0-10.0)
[2017-06-11 07:55] LABS: ALANINE AMINOTRANSFERASE 19 U/L (14-59); ALKALINE PHOSPHATASE 149 U/L (50-136); ASPARTATE AMINOTRANSFERASE 22 U/L (15-37); BILIRUBIN,TOTAL 0.3 mg/dL (0.2-1.0); CARBON DIOXIDE 23 mmol/L (21-32); CHLORIDE 112 mmol/L (98-107); CREATININE 0.7 mg/dL (0.6-1.3); GLUCOSE 101 mg/dL (74-106); PHOSPHOROUS 2.3 mg/dL (2.5-4.9); POTASSIUM 4.5 mmol/L (3.5-5.1); TOTAL PROTEIN, SERUM 6.6 g/dL (6.4-8.2); UREA NITROGEN, BLOOD 15 mg/dL (7-18)
[2017-06-11 07:58] LABS: HEMATOCRIT 32.7 % (31.2-41.9); HEMOGLOBIN 10.4 g/dL (10.9-14.3); LYMPHOCYTES % (AUTO) 5.6 % (20.5-51.5); MEAN CORPUSCULAR HEMOGLOBIN 27.2 uug (24.7-32.8); MEAN CORPUSCULAR HGB CONC 32 g/dL (32.3-35.6); MONOCYTES % (AUTO) 3.7 % (0.0-11.0); NEUTROPHILS # (AUTO) 6.4 K/uL (1.8-8.9); NEUTROPHILS % (AUTO) 90.6 % (38.5-71.5); PLATELET COUNT (AUTO) 90 K/uL (179-408); RED BLOOD CELL COUNT(AUTO) 3.85 MIL/uL (3.63-4.92)
[2017-06-11 08:00] VITALS: BP 155/62
--- NOTE | 2017-06-11 08:00 | NUR ---
Awake, alert, oriented x 3, forgetful, anxious, on moderate high back rest. O2 at 3L/NC with O2 sat of 96%
[2017-06-11] MEDS: PROTEIN SUPPLEMENT (PROSTAT) 30 ML LIQUID PO SCH (08:49)
[2017-06-11] MEDS: MEROPENEM 500 MG in IV NORMAL SALINE 50 ML IV SCH ×2 (08:49→20:38)
[2017-06-11] MEDS: methylPREDNISolone SOD SUCC 40 MG/ML VIAL IV SCH (08:50)
[2017-06-11] MEDS: SPIRONOLACTONE 25 MG TABLET PO SCH ×2 (08:50→16:55)
[2017-06-11] MEDS: MULTIVIT, IRON, MIN NO. 8, FA TABLET PO SCH (08:52)
[2017-06-11] MEDS: NADOLOL 40 MG TABLET PO SCH (08:52)
[2017-06-11] MEDS: LACTOBACILLUS RHAMNOSUS GG 1 EACH CAPSULE PO SCH ×2 (08:52→20:38)
[2017-06-11] MEDS: CHOLECALCIFEROL 1,000 UNIT TABLET PO SCH (08:53)
[2017-06-11] MEDS: RIFAXIMIN 550 MG TABLET PO SCH ×2 (08:53→16:55)
[2017-06-11] MEDS: ASCORBIC ACID 500 MG TABLET PO SCH (08:53)
[2017-06-11] MEDS: Z GUARD REMEDY PASTE 57 GM TUBE TOP SCH ×2 (08:54→20:38)
[2017-06-11] MEDS: LACTULOSE 20 G/30 ML LIQUID UDC PO SCH ×2 (09:00→20:38)
[2017-06-11 10:48] LABS: LYMPHOCYTES % (MANUAL) 10 % (20-40); MONOCYTES % (MANUAL) 5 % (2-10); NEUTROPHILS % (MANUAL) 85 % (42-75)
--- NOTE | 2017-06-11 11:00 | NUR ---
Anxious, saying she is short of breath, O2at 3L/NC with O2 sat of 96%. Repositioned in bed comfortably. Discussed with Dr. Noe and Dora for DC plan.
[2017-06-11 11:07] VITALS: BP 138/52
[2017-06-11] MEDS: AMLODIPINE 5 MG TABLET PO SCH (12:14)
--- NOTE | 2017-06-11 14:45 | NUR ---
Assisted out of bed by PT, ambulated in the hallway. Dr. Sneed informed of distended abdomen with order for ultrasound of abdomen
[2017-06-11 15:22] VITALS: BP 130/46
[2017-06-11] MEDS ORDERED: NEUTRA PHOS PACKET PO ONE (15:45)
[2017-06-11] MEDS: predniSONE 20 MG TABLET PO SCH (17:03)
--- NOTE | 2017-06-11 17:35 | NUR ---
Ultrasound of abdomen done, preliminary report relayed to Dr. Sneed. Not accepted in ARU.
--- NOTE | 2017-06-11 19:30 | NUR ---
Received patient sitting on the side of the bed. No acute distress noted. A&O x 3. O2 monitor by bedside, sating at 97%. IVF infusing. Noted distended abdomen. Safety initiated. Call light within reach, will continue to monitor.
[2017-06-11 20:00] VITALS: BP 136/72
[2017-06-11] MEDS: IV D5/ 0.9% NACL 1,000 ML IV PRN (20:47)
[2017-06-11] MEDS ORDERED: LACTOBACILLUS RHAMNOSUS GG 1 EACH CAPSULE PO SCH (21:00)
--- NOTE | 2017-06-12 05:33 | NUR ---
Patient slept intermittently t/o shift. No acute distress noted. O2 remained > 95% on 3L NC. IVF infusing. Abdomen remains distended. MD aware. [place] care provided. Noted perineal redness. Vital signs stable. BM x 1. Safety and comfort measures maintained t/o shift. All meds given as ordered. All needs met.
[2017-06-12 05:57] VITALS: BP 122/76
[2017-06-12] MEDS: PANTOPRAZOLE SODIUM 40 MG TABLET.DR PO SCH (06:20)
[2017-06-12] MEDS: IPRATROPIUM BROMIDE 0.5 MG/2.5 ML NEBU NEB SCH ×4 (07:07→18:48)
[2017-06-12] MEDS: ALBUTEROL SULFATE 2.5 MG/3 ML NEBU NEB SCH ×4 (07:07→18:48)
[2017-06-12 07:31] LABS: CARBON DIOXIDE 23 mmol/L (21-32); CHLORIDE 113 mmol/L (98-107); CREATININE 0.8 mg/dL (0.6-1.3); GLUCOSE 102 mg/dL (74-106); PHOSPHOROUS 2.3 mg/dL (2.5-4.9); POTASSIUM 4.2 mmol/L (3.5-5.1); UREA NITROGEN, BLOOD 19 mg/dL (7-18)
[2017-06-12] MEDS: PROTEIN SUPPLEMENT (PROSTAT) 30 ML LIQUID PO SCH (08:00)
[2017-06-12] MEDS: AMLODIPINE 5 MG TABLET PO SCH (08:55)
[2017-06-12] MEDS: RIFAXIMIN 550 MG TABLET PO SCH ×2 (08:56→18:09)
[2017-06-12] MEDS: predniSONE 20 MG TABLET PO SCH ×2 (08:57→18:09)
[2017-06-12] MEDS: SPIRONOLACTONE 25 MG TABLET PO SCH ×2 (09:00→18:09)
[2017-06-12] MEDS: MEROPENEM 500 MG in IV NORMAL SALINE 50 ML IV SCH (09:00)
[2017-06-12] MEDS: LACTOBACILLUS RHAMNOSUS GG 1 EACH CAPSULE PO SCH (09:00)
[2017-06-12] MEDS: MULTIVIT, IRON, MIN NO. 8, FA TABLET PO SCH (09:00)
[2017-06-12] MEDS: LACTULOSE 20 G/30 ML LIQUID UDC PO SCH (09:00)
[2017-06-12] MEDS: HYDROCODONE/APAP 5-325MG TABLET PO PRN ×2 (09:10→14:54)
[2017-06-12] MEDS: CHOLECALCIFEROL 1,000 UNIT TABLET PO SCH (09:16)
[2017-06-12] MEDS: ASCORBIC ACID 500 MG TABLET PO SCH (09:16)
[2017-06-12] MEDS: Z GUARD REMEDY PASTE 57 GM TUBE TOP SCH (09:16)
[2017-06-12 10:51] VITALS: BP 131/55
[2017-06-12] MEDS ORDERED: NEUTRA PHOS PACKET PO ONE (11:45)
--- NOTE | 2017-06-12 13:03 | NUR ---
DAILY NOTE IN BED RESTING QUIETLY. ROOM AIR SAT 83% SATING 96% ON 3L. HOB ELEVATED. WARM PACK APPLIED TO FINGERS D/T CYANOTIC IN COLOR. TOLERATING WELL
[2017-06-12 15:16] VITALS: BP 135/74
--- NOTE | 2017-06-12 19:30 | NUR ---
PT AWAITING DISCHARGE AT THIS TIME. NO ACUTE DISTRESS NOTED. CONTINUE TO MONITOR. CG AT BEDSIDE.
[2017-06-12 20:00] VITALS: BP 110/62
--- NOTE | 2017-06-12 21:41 | NUR ---
PT LEFT FACILITY. ALL BELONGINGS AND DOCUMENTS ARE WITH CG WHO IS ASSISTING PT. NO S/S OF ACUTE DISTRESS UPON DISCHARGE.
== END 2017-06-12 21:41 | disposition home health service (06) | DRG 871 ==
LOC: ER 02:14 → TELE 07:50 → MED 06-08 11:58
PROVIDERS: ADMIT Internal Medicine
DX: A41.9 Sepsis, unspecified organism (principal); J69.0 Pneumonitis due to inhalation of food and vomit; J96.01 Acute respiratory failure with hypoxia; E43 Unspecified severe protein-calorie malnutrition; R18.8 Other ascites; D61.818 Other pancytopenia; D68.9 Coagulation defect, unspecified; J44.1 Chronic obstructive pulmonary disease with (acute) exacerbation; N39.0 Urinary tract infection, site not specified; J98.11 Atelectasis; D53.9 Nutritional anemia, unspecified; Z99.81 Dependence on supplemental oxygen; F03.90 Unspecified dementia, unspecified severity, without behavioral disturbance, psychotic disturbance, mood disturbance, and anxiety; K74.3 Primary biliary cirrhosis; R65.20 Severe sepsis without septic shock; Z68.20 Body mass index [BMI] 20.0-20.9, adult; Z88.0 Allergy status to penicillin; Z88.2 Allergy status to sulfonamides; B96.20 Unspecified Escherichia coli [E. coli] as the cause of diseases classified elsewhere; Z16.11 Resistance to penicillins; Z16.23 Resistance to quinolones and fluoroquinolones; M81.0 Age-related osteoporosis without current pathological fracture; M15.9 Polyosteoarthritis, unspecified; Z79.899 Other long term (current) drug therapy; Z87.891 Personal history of nicotine dependence; F43.23 Adjustment disorder with mixed anxiety and depressed mood; I11.9 Hypertensive heart disease without heart failure; I70.0 Atherosclerosis of aorta
CPT/HCPCS: 36415; 36600; 70030-TC; 71045; 76700; 83605; 83735; 84100; 84443; 85025; 85730; 87040; 87077; 87086; 87400; 93005; 93307; 94640; 94664; 97116; 97530; A4663; J0696; J1580; J1940; J1956; J2185; J2405; J2920; J2930; J3370; J3475; J3490; J3590; J7030; J7042; J7060; J7512